=== PATIENT | female | born 1970 | race Caucasian/White ===

== ENCOUNTER 2021-04-06 14:14 | Emergency (ER) | payer OTHER, SELFPAY ==
--- NOTE | 2021-04-06 14:17 | ED.URI ---
HPI - URI/Sore Throat General Chief Complaint: Upper Respiratory Infection Stated Complaint: CONGESTION/HEADACHE/COUGH/BODY ACHES Time Seen by Provider: 04/06/21 14:17 Source: patient and RN notes reviewed History of Present Illness HPI Narrative: Patient is a 50-year-old female who presents the urgent care with complaints of headache, sinus congestion, cough and body aches. Patient states that it started on Wednesday and she has been taking Mucinex, ibuprofen/Tylenol and using Robitussin for the cough. Patient denies of any known fevers, nausea, vomiting. Denies of any known exposure to strep or Covid. Patient is Covid vaccinated. States that her kids have been sick this past week and her daughter was treated for viral pharyngitis. Denies of any shortness of breath. No other acute complaints. No acute distress noted. Follow-up with your PCP within 2 to 5 days or for worsening symptoms or failure to improve. Some parts of this dictation were generated by voice recognition software and may contain typographical and/or grammatical inaccuracies. Related Data Home Medications Medication Instructions Recorded Confirmed escitalopram oxalate mg 04/06/21 estradiol [Divigel] 04/06/21 progesterone micronized mg 04/06/21 Allergies Allergy/AdvReac Type Severity Reaction Status Date / Time No Known Allergies Allergy Unknown Unverified 04/06/21 14:22 Review of Systems Review of Systems: Narrative: CONSTITUTIONAL: Denies fever, chills, or sweats. EYES: Denies visual changes, redness, or discharge. ENT: Reports of sinus congestion CARDIOVASCULAR: Denies chest pain, palpitations, or edema. RESPIRATORY: Reports of nonproductive cough without dyspnea GASTROINTESTINAL: Denies abdominal pain, nausea, vomiting, or diarrhea. GENITOURINARY: Denies dysuria or hematuria. SKIN: Denies rash or itching. MUSCULOSKELETAL: Denies back pain, joint pain. Reports of body aches NEUROLOGIC: Reports of headache All other systems reviewed are negative, except as documented in HPI. PMFSH Comments At the time of my signature, I reviewed and agree with the nursing past medical, surgical, social, and family history. There is no relevant family history pertinent to the patient complaint. Exam Narrative: Exam Narrative: GENERAL: This is a well-nourished, well-developed patient, in no apparent distress. HEAD: normocephalic, atraumatic. EYES: PERRL. Sclera clear/white. Vision is grossly intact. EARS: External ears normal, auditory canals clear and without drainage, TMs normal without perforation. Hearing grossly intact. NOSE: External nose normal with no obvious nasal discharge, nares without redness, no rhinorrhea. THROAT: Mucous membranes moist, posterior pharynx clear. NECK: Neck supple, non-tender without lymphadenopathy CARDIOVASCULAR: Regular rate and rhythm without murmurs, gallops, or rubs. RESPIRATORY: Clear to auscultation. Breath sounds equal bilaterally. No wheezes, rales, or rhonchi. SKIN: warm, intact with no suspicious lesions or rash, good texture and turgor. NEURO: awake, alert, and oriented to person, place and time. There were no obvious focal neurologic abnormalities. EXTREMITIES: No clubbing, cyanosis, or edema. Course Vital Signs Vital signs: Vital Signs Temperature 97.2 F L 04/06/21 14:23 Pulse Rate 73 04/06/21 14:23 Respiratory Rate 16 04/06/21 14:23 Blood Pressure 147/77 H 04/06/21 14:23 Pulse Oximetry 99 04/06/21 14:23 Temperature 97.2 F L 04/06/21 14:23 Pulse Rate 73 04/06/21 14:23 Respiratory Rate 16 04/06/21 14:23 Blood Pressure 147/77 H 04/06/21 14:23 Pulse Oximetry 99 04/06/21 14:23 Reviewed-patient is informed that they may have pre-hypertension or hypertension based on a blood pressure reading in the department. I recommend the patient call the primary care provider listed on their discharge instructions or a physician of their choice this week to arrange follow-up for further evaluation
[2021-04-06 14:23] VITALS: BP 147/77; PULSE 73; RESP 16; TEMP 36.2; O2SAT 99
== END 2021-04-06 14:51 | disposition home or self-care (01) ==
PROVIDERS: Emergency Provider Nurse Practitioner Family
DX: R05 Cough (principal); J02.9 Acute pharyngitis, unspecified
CPT/HCPCS: 87081; 87880; 99213; G0463

== ENCOUNTER 2022-09-09 12:19 | Emergency (ER) | payer OTHER, SELFPAY ==
[2022-09-09 12:35] VITALS: BP 155/89; PULSE 71; RESP 16; TEMP 36.9; O2SAT 98
--- NOTE | 2022-09-09 12:47 | ED.URI ---
HPI - URI/Sore Throat General Chief Complaint: Upper Respiratory Infection Stated Complaint: SORE THROAT/COUGH/HEADACHE/BODY ACHES/NAUSEA Time Seen by Provider: 09/09/22 12:47 Source: patient Mode of arrival: ambulatory Limitations: no limitations History of Present Illness HPI Narrative: 52-year-old female presents with complaint of sore throat, body aches, cough, congestion, fatigue, low-grade fever for 3 days. Take [id number] medications for her symptoms. 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 Denies nausea vomiting diarrhea. No chest pain or shortness of breath. All systems reviewed and negative except as noted above. Related Data Home Medications Medication Instructions Recorded Confirmed escitalopram oxalate 10 mg tablet 10 mg PO DAILY 04/06/21 09/09/22 progesterone micronized 100 mg 100 mg PO DAILY 04/06/21 09/09/22 capsule cetirizine 10 mg capsule (Zyrtec) 10 mg PO DAILY 09/09/22 09/09/22 Allergies Allergy/AdvReac Type Severity Reaction Status Date / Time No Known Allergies Allergy Unknown Unverified 09/09/22 12:43 Review of Systems Review of Systems: CONSTITUTIONAL: Reports fever, chills, or sweats. EYES: Denies visual changes, redness, or discharge. ENT: Reports rhinorrhea, congestion, sore throat. Denies otalgia. CARDIOVASCULAR: Denies chest pain, palpitations, or edema. RESPIRATORY: Reports cough. Denies dyspnea. GASTROINTESTINAL: Denies abdominal pain, nausea, vomiting, or diarrhea. GENITOURINARY: Denies dysuria or hematuria. SKIN: Denies rash or itching. MUSCULOSKELETAL: Denies back pain, joint pain, or myalgia. NEUROLOGIC: Denies headache, numbness, or weakness. PSYCHIATRIC: Denies anxiety or depression. All other systems reviewed are negative, except as documented in HPI. PMFSH Comments At time of signature, agree with nursing past medical, surgical, social and family history. There is no relevant family history pertinent to the presenting complaint. Exam Narrative: GENERAL: This is a well-nourished, well-developed patient, in no apparent distress. HEAD: normocephalic, atraumatic. EYES: PERRL. Sclera clear/white. Vision is grossly intact. EARS: External ears normal, auditory canals clear and without drainage, TMs normal without perforation. Hearing grossly intact. NOSE: External nose normal with clear nasal drainage, mild erythema tenderness. THROAT: Mucous membranes moist, mild erythema posterior pharynx. NECK: Neck supple, non-tender without lymphadenopathy, masses or thyromegaly. CARDIOVASCULAR: Regular rate and rhythm without murmurs, gallops, or rubs. RESPIRATORY: Clear to auscultation. Breath sounds equal bilaterally. No wheezes, rales, or rhonchi. SKIN: warm, Dry, intact with no suspicious lesions or rash, good texture and turgor. NEURO: awake, alert, and oriented to person, place and time. There were no obvious focal neurologic abnormalities. EXTREMITIES: No joint tenderness, effusion, or edema noted. Course Course Level of Care: Express Care Visit Vital Signs Vital signs: Vital Signs Temperature 36.9 C 09/09/22 12:35 Pulse Rate 71 09/09/22 12:35 Respiratory Rate 16 09/09/22 12:35 Blood Pressure 155/89 H 09/09/22 12:35 Pulse Oximetry 98 09/09/22 12:35 Temperature 36.9 C 09/09/22 12:35 Pulse Rate 71 09/09/22 12:35 Respiratory Rate 16 09/09/22 12:35 Blood Pressure 155/89 H 09/09/22 12:35 Pulse Oximetry 98 09/09/22 12:35 Review MDM - URI/Sore Throat MDM Narrative Medical decision making narrative: Negative influenza, strep, COVID. Patient is aware of diagnosis, understands and agrees to treatment plan. Anticipatory guidance given. Patient agrees to follow-up as directed and is aware of reasons to seek care at the emergency department. Portions of this record may have been created with voice recognition software Lab Data Labs: Lab Results 09/09/22 Range/Units 12:52 POC SARS CoV-
== END 2022-09-09 13:26 | disposition home or self-care (01) ==
PROVIDERS: Emergency Provider Nurse Practitioner Family
DX: J06.9 Acute upper respiratory infection, unspecified (principal); Z20.822 Contact with and (suspected) exposure to COVID-19
CPT/HCPCS: 87081; 87426; 87804; 87880; 99213; C9803; G0463

== ENCOUNTER 2022-09-13 16:53 | Emergency (ER) | payer OTHER, SELFPAY ==
--- NOTE | 2022-09-13 16:55 | ED.URI ---
HPI - URI/Sore Throat General Chief Complaint: Upper Respiratory Infection Stated Complaint: cough, sore throat, bodyaches Time Seen by Provider: 09/13/22 16:55 Source: patient Mode of arrival: ambulatory Limitations: no limitations History of Present Illness HPI Narrative: Tiff is a 52-year-old female patient presenting to the clinic today with complaints of non productive cough, sore throat, and body aches x 5 days. She was seen in the urgent care earlier this week and had covid, flu, and strep testing done which were all negative. MD elicited complaint: cough, sore throat, nasal congestion and other (Body aches) Related Data Home Medications Medication Instructions Recorded Confirmed escitalopram oxalate 10 mg tablet 10 mg PO DAILY 04/06/21 09/09/22 progesterone micronized 100 mg 100 mg PO DAILY 04/06/21 09/09/22 capsule cetirizine 10 mg capsule (Zyrtec) 10 mg PO DAILY 09/09/22 09/09/22 Allergies Allergy/AdvReac Type Severity Reaction Status Date / Time No Known Allergies Allergy Unknown Unverified 09/09/22 12:43 Review of Systems Review of Systems: Pertinent positives per HPI. Patient denies any fever, chills, rash, headache, visual changes, dizziness, cough, shortness of breath, chest pain, palpitations, nausea, vomiting, diarrhea, constipation, abdominal pain, or any urinary issues. PMFSH Comments At the time of my signature, I reviewed and agree with the nursing past medical, surgical, social, and family history. There is no relevant family history pertinent to the patient complaint. Exam Narrative: General: Well-developed, well nourished, in no apparent distress Head: Normocephalic, atraumatic Eyes: Pupils equally round and reactive to light bilaterally, EOM intact, sclera and conjunctive clear, no discharge, lids normal Ears: TMs intact and clear, ear canals clear, no drainage, grossly hearing normal. Nose: Nares patent, clear discharge, moderate to severe inflammation, mild sinus tenderness. Mouth: Oral pharynx without lesions or masses, good dentition, MMM. Oropharynx red, postnasal drip Neck: Supple, trachea midline, no enlargement of anterior or posterior cervical nodes, no thyroid masses or goiter palpable. Cardio: Regular rate and rhythm, s1 and s2 normal, no murmur appreciated. Resp: Clear to auscultation bilaterally, no rhonchi, rales, wheezing or rubs Course Course Emergency Course: Portions of this record may have been created with voice recognition software. Level of Care: Express Care Visit Vital Signs Vital signs: Vital signs reviewed MDM - URI/Sore Throat MDM Narrative Medical decision making narrative: At the time of visit patient is resting comfortably on the exam table. Influenza and strep testing was obtained in the clinic and were negative. I suspect patient has upper respiratory infection with postnasal drip and bronchospasm. Prescription for prednisone and albuterol inhaler sent to the pharmacy. Supportive measures were discussed with the patient she voiced understanding of discharge instructions Differential Diagnosis Differential diagnosis: Likely upper respiratory infection, otitis media, sinusitis, viral infection, bronchitis, influenza, pharyngitis and other (COVID) Discharge Plan Discharge Clinical Impression: Upper respiratory infection, Post-nasal drip, Acute bronchospasm Patient Disposition: Home, Self-Care Condition: Stable Instructions: Antibiotic Form, Upper Respiratory Infection (ED), Postnasal Drip (DC), Bronchospasm (ED) Additional Instructions: Take prescription medications only as prescribed- albuterol inhaler and prednisone Increase fluids and stay well hydrated Tylenol/motrin for pain/fever Flonase and OTC antihistamines as directed Vicks vapor rub to open sinuses Sinus rinses for congestion Cepacol spray, cough drops, throat lozenges, warm tea with honey/lemon, gargle salt water to soothe throat BRAT diet for cristiana
[2022-09-13 17:01] VITALS: BP 160/94; PULSE 81; RESP 16; TEMP 36.7; O2SAT 98
== END 2022-09-13 17:28 | disposition home or self-care (01) ==
PROVIDERS: Emergency Provider Nurse Practitioner Family
DX: J06.9 Acute upper respiratory infection, unspecified (principal); R09.82 Postnasal drip; J98.01 Acute bronchospasm
CPT/HCPCS: 87804; 87880; 99213; G0463

== ENCOUNTER 2023-01-12 19:08 | Emergency (ER) | payer OTHER, SELFPAY ==
[2023-01-12 19:18] VITALS: BP 147/76; PULSE 76; RESP 16; TEMP 36.1; O2SAT 100
--- NOTE | 2023-01-12 19:30 | ED.EAR ---
HPI - Ear Problem General Chief complaint: Ear Stated complaint: lt ear pain/drainage Source: patient and RN notes reviewed History of Present Illness HPI Narrative: 52-year-old female presents to urgent care complaints of left ear fullness and states she cannot hear. Patient states symptoms started today but does report being congested approximately 2 weeks. Patient denies any fevers, chills, does report a slight sore throat. Denies any vomiting. Some parts of this dictation were generated by voice recognition software and may contain typographical and/or grammatical inaccuracies. Related Data Home Medications Medication Instructions Recorded Confirmed progesterone micronized 100 mg 100 mg PO DAILY 04/06/21 01/12/23 capsule escitalopram oxalate 5 mg tablet 5 mg PO DAILY 01/12/23 01/12/23 estradiol 1 mg/gram (0.1 %) 1 mg transdermal DAILY 01/12/23 01/12/23 transdermal gel packet Allergies Allergy/AdvReac Type Severity Reaction Status Date / Time No Known Allergies Allergy Unknown Unverified 01/12/23 19:24 Review of Systems Review of Systems: CONSTITUTIONAL: Denies fever, chills, or sweats. EYES: Denies visual changes, redness, or discharge. ENT: Left ear fullness and sore throat. congestion x2 never wakes CARDIOVASCULAR: Denies chest pain, palpitations, or edema. RESPIRATORY: Denies cough or dyspnea. GASTROINTESTINAL: Denies abdominal pain, nausea, vomiting, or diarrhea. GENITOURINARY: Denies dysuria or hematuria. SKIN: Denies rash or itching. MUSCULOSKELETAL: Denies back pain, joint pain, or myalgia. NEUROLOGIC: Denies headache, numbness, or weakness. PMFSH Comments At the time of my signature, I reviewed and agree with the nursing past medical, surgical, social, and family history. There is no relevant family history pertinent to the patient complaint. Exam Narrative: GENERAL: This is a well-nourished, well-developed patient, in no apparent distress. HEAD: normocephalic, atraumatic. EYES: Sclera clear/white. Vision is grossly intact. EARS: External ears normal, left canal noted to be edematous and erythemic. TM noted to be erythemic and bulging. Right TM clear. NOSE: External nose normal with no obvious nasal discharge, nares without redness, no rhinorrhea. THROAT: Mucous membranes moist, posterior pharynx clear. NECK: Neck supple, non-tender without lymphadenopathy, masses or thyromegaly. CARDIOVASCULAR: Regular rate RESPIRATORY: No respiratory distress SKIN: warm, intact with no suspicious lesions or rash, good texture and turgor. NEURO: awake, alert, and oriented to person, place and time. There were no obvious focal neurologic abnormalities. Course Course Level of Care: Express Care Visit Vital Signs Vital signs: Vital Signs Temperature 97 F L 01/12/23 19:18 Pulse Rate 76 01/12/23 19:18 Respiratory Rate 16 01/12/23 19:18 Blood Pressure 147/76 H 01/12/23 19:18 Pulse Oximetry 100 01/12/23 19:18 Temperature 97 F L 01/12/23 19:18 Pulse Rate 76 01/12/23 19:18 Respiratory Rate 16 01/12/23 19:18 Blood Pressure 147/76 H 01/12/23 19:18 Pulse Oximetry 100 01/12/23 19:18 reviewed Medical Decision Making MDM Narrative Medical decision making narrative: Return to urgent care or go to the ER for new or worsening symptoms. Avoid smoking/second-hand smoke. Continue to take Tylenol or Motrin for pain. Increase your Vitamin C intake. Use a humidifier or vaporizer at night. Take Medications as prescribed. Drink plenty of water. 8-10 glasses per day. Use flonase 2 times per day for 5 days then as needed Take mucinex 2 times per day and be sure to take with 8oz of water. Follow up with Primary provider if not getting better. Go to the ER for new or worsening symptoms. Differential Diagnosis Differential Diagnosis: acute otitis media, sinusitis, URI Vital Signs Vital Signs: Vital Signs Temperature 97 F L 01/12/23 19:18 Pulse Rate 7
== END 2023-01-12 19:39 | disposition home or self-care (01) ==
PROVIDERS: Emergency Provider Nurse Practitioner Family
DX: H66.92 Otitis media, unspecified, left ear (principal); J01.90 Acute sinusitis, unspecified
CPT/HCPCS: 99213; G0463

== ENCOUNTER 2023-03-05 16:41 | Emergency (ER) | payer OTHER, SELFPAY ==
--- NOTE | 2023-03-05 16:49 | ED.EAR ---
HPI - Ear Problem General Chief complaint: Ear Stated complaint: lt ear infection Time Seen by Provider: 03/05/23 16:55 Source: patient Mode of arrival: ambulatory Limitations: no limitations History of Present Illness HPI Narrative: Ms. Ramos is a 52-year-old female patient presenting to clinic today with complaints of left-sided ear pain 1-2 days. Reports that she is having ear pain with decreased hearing. Denies any recent swimming. Denies any fever,chills, or URI symptoms. Related Data Home Medications Medication Instructions Recorded Confirmed progesterone micronized 100 mg 100 mg PO DAILY 04/06/21 03/05/23 capsule escitalopram oxalate 5 mg tablet 5 mg PO DAILY 01/12/23 03/05/23 estradiol 1 mg/gram (0.1 %) 1 mg transdermal DAILY 01/12/23 03/05/23 transdermal gel packet ciprofloxacin 0.3 %-dexamethasone 4 drp EACH EAR Q12H 03/05/23 03/05/23 0.1 % ear drops,suspension Allergies Allergy/AdvReac Type Severity Reaction Status Date / Time No Known Allergies Allergy Unknown Unverified 03/05/23 16:59 Review of Systems Review of Systems: Pertinent positives per HPI. Patient denies any fever, chills, rash, headache, visual changes, dizziness, cough, shortness of breath, chest pain, palpitations, nausea, vomiting, diarrhea, constipation, abdominal pain, or any urinary issues. PMFSH Comments At the time of my signature, I reviewed and agree with the nursing past medical, surgical, social, and family history. There is no relevant family history pertinent to the patient complaint. Exam Narrative: General: Well-developed, well nourished, in no apparent distress Head: Normocephalic, atraumatic Eyes: Pupils equally round and reactive to light bilaterally, EOM intact, sclera and conjunctive clear, no discharge, lids normal Ears: Right tMs intact and clear, right ear canals clear left ear canal swollen with little space to pass through the canal-unable to visualize the TM, no drainage, grossly hearing normal. Nose: Nares patent, no discharge, no inflammation, no sinus tenderness. Mouth: Oral pharynx without lesions or masses, good dentition, MMM. Neck: Supple, trachea midline, no enlargement of anterior or posterior cervical nodes, no thyroid masses or goiter palpable. Cardio: Regular rate and rhythm, s1 and s2 normal, no murmur appreciated. Resp: Clear to auscultation bilaterally, no rhonchi, rales, wheezing or rubs Course Course Emergency Course: Portions of this record may have been created with voice recognition software. Level of Care: Express Care Visit Vital Signs Vital signs: Vital signs reviewed Medical Decision Making MDM Narrative Medical decision making narrative: At the time of visit patient is resting comfortably on the exam table. I suspect patient has left otitis externa. Attempted to place a ear wick without success. Recommend patient using ear drops and lying on her right side for at least 5 minutes to allow the drops to take time to get into the ear canal. Supportive measures were discussed with the patient she voiced understanding of discharge instructions and agrees to treatment plan Differential Diagnosis Differential Diagnosis: Otitis media, otitis externa, eustachian tube dysfunction, upper respiratory infection, cerumen impaction. Discharge Plan Discharge Clinical Impression: Otitis externa Qualifiers: Otitis externa type: diffuse Chronicity: acute Laterality: left Qualified Code(s): H60.312 - Diffuse otitis externa, left ear Patient Disposition: Home, Self-Care Condition: Stable Instructions: Antibiotic Form, Swimmer's Ear (ED) Additional Instructions: Instill ciprodex ear drops as prescribed-ear wick placed in the clinic today Tylenol/motrin as needed for pain May use heating pad to alleviate pain If you get recurrent ear infections it may be warranted to follow up with ENT. Follow up with your PCP in 3-5 days if symptoms persist. Prescrip
[2023-03-05 16:53] VITALS: BP 168/79; PULSE 62; RESP 16; TEMP 35.9; O2SAT 99
== END 2023-03-05 17:02 | disposition home or self-care (01) ==
PROVIDERS: Emergency Provider Nurse Practitioner Family
DX: H60.312 Diffuse otitis externa, left ear (principal)
CPT/HCPCS: 99212; G0463

== ENCOUNTER 2023-08-20 10:59 | Emergency (ER) | payer OTHER, SELFPAY ==
[2023-08-20 11:14] VITALS: BP 134/86; PULSE 70; RESP 16; TEMP 36.6; O2SAT 98
--- NOTE | 2023-08-20 11:24 | ED.URI ---
HPI - URI/Sore Throat General Chief Complaint: Upper Respiratory Infection Stated Complaint: Sore Throat Time Seen by Provider: 08/20/23 11:24 History of Present Illness HPI Narrative: 53-year-old female presented sore throat for week. Endorses mild nasal congestion and cough. She lost her voice about 3 days ago. She denies difficulty maintaining secretions, shortness of breath, wheezing nausea, vomiting, fevers chills. She is [id number] sinus medicine. 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 Related Data Home Medications Medication Instructions Recorded Confirmed progesterone micronized 100 mg 100 mg PO DAILY 04/06/21 08/20/23 capsule escitalopram oxalate 5 mg tablet 5 mg PO DAILY 01/12/23 08/20/23 estradiol 1 mg/gram (0.1 %) 1 mg transdermal DAILY 01/12/23 08/20/23 transdermal gel packet Allergies Allergy/AdvReac Type Severity Reaction Status Date / Time No Known Allergies Allergy Unknown Unverified 03/05/23 16:59 Review of Systems Review of Systems: CONSTITUTIONAL: Denies body aches, fever, chills, or sweats. EYES: Denies visual changes, redness, or discharge. ENT: Reports sore throat denies congestion, or otalgia. CARDIOVASCULAR: Denies chest pain, palpitations, or edema. RESPIRATORY: Denies dyspnea. GASTROINTESTINAL: Denies abdominal pain, nausea, vomiting, or diarrhea. SKIN: Denies rash, itching, or wounds. MUSCULOSKELETAL: Denies back pain, joint pain, or myalgia. NEUROLOGIC: Denies headache [facility] Past Medical History Medical History (Updated 08/20/23 @ 11:35 by Marisol Elizabeth, RADAR SYSTEMS ENGINEER) No pertinent past medical history Exam Narrative: GENERAL: mildly Ill-appearing, no acute distress. EYES: conjunctivae clear ENT: Mucous membranes moist. TM pearly ricketts with normal light reflex bilaterally; no tragal tenderness. Oropharynx mildly erythematous without lesions. Tonsils without exudate. Hoarse voice. No drooling, no trismus, uvula midline. No tripod positioning, hot potato voice, or soft palate swelling. NECK: Supple. No lymphadenopathy CHEST: Clear to auscultation, breath sounds equal. No respiratory distress, speaks in full sentences. HEART: Regular rate and rhythm. No murmur heard. SKIN: Warm, dry, no rash. NEURO: Alert and oriented x3. Course Course Emergency Course: Patient is aware of diagnosis, understands and agrees to treatment plan. Anticipatory guidance given. Patient agrees to follow-up as directed and is aware of reasons to seek care at the emergency department. Portions of this record may have been created with voice recognition software Level of Care: Express Care Visit Vital Signs Vital signs: Vital Signs Temperature 97.8 F 08/20/23 11:14 Pulse Rate 70 08/20/23 11:14 Respiratory Rate 16 08/20/23 11:14 Blood Pressure 134/86 08/20/23 11:14 Pulse Oximetry 98 08/20/23 11:14 Temperature 97.8 F 08/20/23 11:14 Pulse Rate 70 08/20/23 11:14 Respiratory Rate 16 08/20/23 11:14 Blood Pressure 134/86 08/20/23 11:14 Pulse Oximetry 98 08/20/23 11:14 MDM - URI/Sore Throat MDM Narrative Medical decision making narrative: neg strep result reviewed with pt. Advise supportive treatments. Patient is appropriate for outpatient treatment and follow-up. Differential Diagnosis Differential diagnosis: Likely upper respiratory infection, viral infection and pharyngitis Discharge Plan Discharge Clinical Impression: Pharyngitis Patient Disposition: Home, Self-Care Condition: Stable Instructions: Antibiotic Form, Laringitis (ED) Additional Instructions: Rapid strep swab was negative today You will be notified in a few days if the culture comes back positive for strep, and appropriate antibiotics will be called in at that time. if symptoms are due to a viral illness, it is not treated with antibiotics. Viral symptoms can be present for up to 10-14 days. Recommend Flonase spray and Zyrtec for sinu
== END 2023-08-20 11:38 | disposition home or self-care (01) ==
PROVIDERS: Emergency Provider Nurse Practitioner Family
DX: J02.9 Acute pharyngitis, unspecified (principal)
CPT/HCPCS: 87081; 87880; 99213; G0463

== ENCOUNTER 2023-10-22 11:13 | Emergency (ER) | payer OTHER, SELFPAY ==
[2023-10-22 11:24] VITALS: BP 145/74; PULSE 79; RESP 16; TEMP 37.3; O2SAT 98
--- NOTE | 2023-10-22 11:35 | ED.URI ---
HPI - URI/Sore Throat General Chief Complaint: Upper Respiratory Infection Stated Complaint: Sore Throat Source: patient and RN notes reviewed Mode of arrival: ambulatory Limitations: no limitations History of Present Illness HPI Narrative: 53-year-old female presented for complaint of sore throat, left ear pain, headache, body aches and nausea, onset 2 days. She denies nasal congestion, cough, shortness of breath, vomiting, fevers or chills. MD elicited complaint: cough Related Data Home Medications Medication Instructions Recorded Confirmed progesterone micronized 100 mg 100 mg PO DAILY 04/06/21 10/22/23 capsule escitalopram oxalate 5 mg tablet 5 mg PO DAILY 01/12/23 10/22/23 cetirizine 10 mg tablet (Zyrtec) 10 mg PO DAILY 10/22/23 10/22/23 Allergies Allergy/AdvReac Type Severity Reaction Status Date / Time No Known Allergies Allergy Unknown Unverified 10/22/23 11:20 Review of Systems Review of Systems: CONSTITUTIONAL: Endorses malaise, denies chills, sweats, fever EYES: Denies visual changes, redness, or discharge ENT: Reports rhinorrhea, congestion, otalgia, sore throat CARDIOVASCULAR: Denies chest pain, palpitations, edema RESPIRATORY: Denies dyspnea GASTROINTESTINAL: Denies abdominal pain, vomiting, diarrhea SKIN: Denies rash or itching MUSCULOSKELETAL: Endorses myalgia NEUROLOGIC: Reports headache PMFSH Past Medical History Medical History No pertinent past medical history Exam Narrative: GENERAL: mildly Ill-appearing, nontoxic no acute distress. EYES: conjunctivae clear ENT: Mucous membranes moist. TMs pearly ricketts with dull light reflex bilaterally; no tragal tenderness. Oropharynx not erythematous without lesions or exudate, no drooling, no hoarseness, no trismus, uvula midline. No tripod positioning, muffled voice, soft palate or pharyngeal wall bulging NECK: Supple. No lymphadenopathy CHEST: Clear to auscultation, breath sounds equal. No wheezing, rhonchi, rales, or stridor. No respiratory distress, speaks in full sentences. HEART: Regular rate and rhythm. No murmur heard. SKIN: Warm, dry, no rash. NEURO: Alert and oriented x3. PSYCH: Normal mood and affect Course Course Emergency Course: Patient is aware of diagnosis, understands and agrees to treatment plan. Anticipatory guidance given. Patient agrees to follow-up as directed and is aware of reasons to seek care at the emergency department. Portions of this record may have been created with voice recognition software Level of Care: Express Care Visit Vital Signs Vital signs: Vital Signs Temperature 99.1 F 10/22/23 11:24 Pulse Rate 79 10/22/23 11:24 Respiratory Rate 16 10/22/23 11:24 Blood Pressure 145/74 H 10/22/23 11:24 Pulse Oximetry 98 10/22/23 11:24 Temperature 99.1 F 10/22/23 11:24 Pulse Rate 79 10/22/23 11:24 Respiratory Rate 16 10/22/23 11:24 Blood Pressure 145/74 H 10/22/23 11:24 Pulse Oximetry 98 10/22/23 11:24 reviewed MDM - URI/Sore Throat MDM Narrative Medical decision making narrative: Neg strep, covid, flu Discussed physical exam findings. Advised supportive measures and signs/symptoms to go to the ER. Pt is appropriate for outpt treatment and f/u. Differential Diagnosis Differential diagnosis: Likely upper respiratory infection, sinusitis and viral infection Lab Data Labs: Influenza A Screen Negative Reference Range: Negative Influenza B Screen Negative Reference Range: Negative Strep Screen Presumptive Negative *(Reference Range: Negative)* Discharge Plan Discharge Clinical Impression: Upper respiratory infection Qualifiers: URI type: unspecified URI Qualified Code(s): J06.9 - Acute upper respiratory infection, unsp
== END 2023-10-22 12:03 | disposition home or self-care (01) ==
PROVIDERS: Emergency Provider Nurse Practitioner Family
DX: J06.9 Acute upper respiratory infection, unspecified (principal); Z79.899 Other long term (current) drug therapy; Z20.822 Contact with and (suspected) exposure to COVID-19
CPT/HCPCS: 87081; 87426; 87804; 87880; 99213; C9803; G0463

== ENCOUNTER 2025-10-20 15:39 | Emergency (ER) | payer OTHER, SELFPAY ==
--- NOTE | ~2025-10-20 | XR_ITS ---
EXAMINATION: XR chest 2V DATE: 10/20/2025 16:11 INDICATION: Cough. TECHNIQUE: Frontal and lateral views of the chest were obtained. COMPARISON: None. FINDINGS: Evaluation is limited due to skin fold artifacts over the chest wall on both sides. No definite acute findings. No focal abnormalities on the lateral view. IMPRESSION: 1. No definite acute findings. Artifacts as mentioned above on PA view. Please repeat PA view. Reviewed, dictated and finalized at location [employer]
[2025-10-20 16:04] VITALS: BP 146/87; PULSE 84; RESP 16; TEMP 36.7; O2SAT 100
--- NOTE | 2025-10-20 16:30 | ED.GENADULT ---
HPI - General Adult General Chief complaint: Upper Respiratory Infection Stated complaint: Cough Source: patient Mode of arrival: ambulatory Limitations: no limitations History of Present Illness HPI narrative: Patient presents for evaluation of respiratory symptoms since 10/04/2025. She reports sore throat and cough. She went to urgent care on 10/10/25. She states no diagnostic testing was performed. She was given prescriptions for Augmentin and steroids. She took the medication but did not have any improvement in her symptoms or after. She reports persistent cough. Her throat feels raw secondary to coughing. She does get dyspnea on exertion. She also has nausea and diarrhea without vomiting. She has tried Mucinex and [id number] cough medication with mild success. 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 Related Data Home Medications ?Medication ?Instructions ?Recorded ?Confirmed ?Last Taken ?Type progesterone micronized 100 mg 100 mg PO DAILY 04/06/21 10/22/23 Unknown History capsule escitalopram oxalate 5 mg tablet 5 mg PO DAILY 01/12/23 10/22/23 Unknown History cetirizine 10 mg tablet (Zyrtec) 10 mg PO DAILY 10/22/23 10/22/23 Unknown History atorvastatin 10 mg tablet mg 10/20/25 Unknown History bupropion HCl 150 mg 24 hr tablet, mg PO 10/20/25 Unknown History extended release fluoxetine 40 mg capsule mg 10/20/25 Unknown History lisinopril 10 mg tablet mg 10/20/25 Unknown History progesterone micronized 200 mg mg 10/20/25 Unknown History capsule Allergies Allergy/AdvReac Type Severity Reaction Status Date / Time No Known Allergies Allergy Unknown Verified 10/20/25 16:01 Review of Systems Review of Systems: CONSTITUTIONAL: Denies fever, chills, or sweats. EYES: Denies visual changes, redness, or discharge. ENT: Reports sore throat. Denies rhinorrhea, congestion, or otalgia. CARDIOVASCULAR: Denies chest pain, palpitations, or edema. RESPIRATORY: Reports cough and dyspnea on exertion. GASTROINTESTINAL: Reports nausea and diarrhea without vomiting. GENITOURINARY: Denies dysuria or hematuria. SKIN: Denies rash or itching. MUSCULOSKELETAL: Denies back pain, joint pain, or myalgia. NEUROLOGIC: Denies headache, numbness, dizziness, or weakness. PSYCHIATRIC: Denies anxiety or depression. [facility] Past Medical History Medical History (Updated 10/20/25 @ 17:21 by John Camara APRN, SIDDHARTHA) Depression Hyperlipidemia Surgical History Surgical History No pertinent past surgical history Family History Family History Mother Family history non-contributory Social History Social History (Updated 10/20/25 @ 16:39 by John Camara APRN, SIDDHARTHA) Gender identity (if verbalized by the patient): Female Spiritual care concerns: No Exam Narrative: GENERAL: Well-appearing, well-nourished, and in no acute distress. HEAD: Normocephalic, atraumatic. EYES: PERRLA and EOMI. ENT: Nares clear, no rhinorrhea or epistaxis. Mucous membranes moist. Oropharynx without tonsillar hypertrophy exudate or other lesions. Bilateral TMs pearly ricketts nonbulging NECK: Supple. No adenopathy or masses. No carotid bruits or JVD CHEST: wheezing noted bilaterally. Mild cough present on exam. HEART: Regular rate and rhythm. No murmur heard. Normal peripheral pulses. ABDOMEN: Soft, nontender, nondistended, normal active bowel sounds. EXTREMITIES: Normal range of motion. No edema. SKIN: Warm, dry, no rash. NEURO: No focal deficits. Alert and oriented x3. PSYCH: Normal mood and affect. Course Course Emergency Course: this is a 55-year-old female who presented for evaluation of respiratory symptoms. Flu and COVID were not checked due to duration of time in which she has been symptomatic. Although her chest x-ray was read as normal, clinically this seems consistent with pneumonia. She was given a neb treatment and a shot of steroids while here. She will be discharged with cefdinir and doxycycline through shared decision making on treatment plan. Will have her follow-up with her primary care provider. Go to the ER for worsening symptoms. Patient in agreement with plan of care. Level of Care: Express Care Visit Vital Signs Vital signs: Vital Signs Temperature 36.7 C 10/20/25 16:04 Pulse Rate 84 10/20/25 16:04 Respiratory Rate 16 10/20/25 16:04 Blood Pressure 146/87 H 10/20/25 16:04 Pulse Oximetry 100 10/20/25 16:04 Oxygen Delivery Room Air 10/20/25 16:04 Temperature 36.7 C 10/20/25 16:04 Pulse Rate 84 10/20/25 16:04 Respiratory Rate 16 10/20/25 16:04 Blood Pressure 146/87 H 10/20/25 16:04 Pulse Oximetry 100 10/20/25 16:04 Oxygen Delivery Room Air 10/20/25 16:04 MDM Differential Diagnosis Differential Diagnosis: Pneumonia versus COVID versus flu versus bronchitis versus other Imaging Data Radiologist's impression: ITS Impressions Chest X-Ray 10/20/25 16:12 IMPRESSION: 1. No definite acute findings. Artifacts as mentioned above on PA view. Please repeat PA view. ADDENDUM: 10/20/25 [id number] Repeat PA chest shows no acute pulmonary findings. IMPRESSION: No acute cardiopulmonary findings. Discharge Plan Discharge Clinical Impression: At risk for pneumonia Patient Disposition: Home Condition: Stable Instructions: Antibiotic Form, Pneumonia (ED) Patient Language: Tajik Prescriptions: New cefdinir 300 mg capsule 300 mg PO Q12H Qty: 20 0RF doxycycline hyclate 100 mg capsule 100 mg PO BID 10 Days Qty: 20 0RF No Action progesterone micronized 100 mg capsule 100 mg PO DAILY escitalopram oxalate 5 mg tablet 5 mg PO DAILY cetirizine [Zyrtec] 10 mg Tablet 10 mg PO DAILY fluoxetine 40 mg capsule atorvastatin 10 mg tablet lisinopril 10 mg tablet progesterone micronized 200 mg capsule bupropion HCl 150 mg tablet extended release 24 hr PO Follow-up/Referrals: Richmond Cortez MD [Physician, Family Practice] Time of Disposition: 17:23
[2025-10-20] MEDS: IPRATROPIUM 0.5 MG/ALBUTEROL SULFATE 2.5 MG (BASE) AMPUL.NEB 3 ML INHALATION (16:41)
== END 2025-10-20 17:27 | disposition home or self-care (01) ==
PROVIDERS: Emergency Provider Nurse Practitioner
DX: R05.9 Cough, unspecified (principal); E78.5 Hyperlipidemia, unspecified; F32.A Depression, unspecified
CPT/HCPCS: 71046; 94640; 96372; 99213; G0463; J2919